=== PATIENT | male | born 1990 | race Caucasian/White ===

== ENCOUNTER 2020-08-10 14:48 | Outpatient (CLI) | payer OTHER, SELFPAY ==
--- NOTE | ~2020-08-10 | US_ITS ---
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 The left testis measures 4.7 x 2.2 x 2.8 cm. There is a chronic 3 mm cyst or spermatocele of the left epididymis. There is normal vascu lar flow to the left testicle. No left testicular mass is identified. There are two punctate calcific ations of the left testicle. IMPRESSION: 1. Interval right orchiectomy. 2. Punctate calcifications of the left testicle without left testicular mass identified. Reviewed, dictated and finalized at location A. IMPRESSION: 1. Interval right orchiectomy. 2. Punctate calcifications of the left testicle without left testicular mass id entified.
== END 2020-08-10 14:49 | disposition home or self-care (01) ==
PROVIDERS: PCP Family Medicine Adolescent Medicine
DX: N50.82 Scrotal pain (principal); C62.91 Malignant neoplasm of right testis, unspecified whether descended or undescended
CPT/HCPCS: 76870; 93976